=== PATIENT | female | born 1985 | race Caucasian/White ===

== ENCOUNTER 2019-01-17 14:53 | Inpatient (IN) | payer OTHER ==
[~2019-01-17] VITALS: Ht 154.9 cm; Wt 79.1 kg
[2019-03-23] MEDS ORDERED: RINGERS SOLUTION,LACTATED 1,000 ML IV PRN (11:16)
[2019-03-23] MEDS ORDERED: OXYTOCIN 30 UNITS/LACT RINGERS 500 ML IV ONE (11:16)
[2019-03-23 11:21] VITALS: BP 128/86
[2019-03-23] MEDS ORDERED: OXYGEN THERAPY IH SCH (11:30)
[2019-03-23] MEDS ORDERED: FentaNYL CITRATE-PF 100 MCG/2 ML VIAL IVP PRN (11:30)
[2019-03-23] MEDS ORDERED: METHYLERGONOVINE MALEATE 0.2 MG/ML VIAL IM PRN (11:30)
[2019-03-23] MEDS ORDERED: METOCLOPRAMIDE HCL 5 MG/ML 2 ML VIAL IVP PRN (11:30)
[2019-03-23] MEDS ORDERED: CITRIC ACID/SODIUM CITRATE 30 ML SOLUTION UDCUP PO PRN (11:30)
[2019-03-23] MEDS: RINGERS SOLUTION,LACTATED 1,000 ML IV SCH ×2 (11:40→18:14)
[2019-03-23] MEDS ORDERED: PREN-134 PO (11:43)
[2019-03-23 13:01] LABS: BASOPHILS % (AUTO) 0.2 % (0.0-2.0); EOSINOPHILS % (AUTO) 0 % (1.0-6.0); HEMATOCRIT 38.4 % (36-46); HEMOGLOBIN 12.6 g/dL (12.0-16.0); LYMPHOCYTES # (AUTO) 2.8 K/uL (1.0-4.8); LYMPHOCYTES % (AUTO) 15.7 % (22.0-44.0); MEAN CORPUSCULAR HEMOGLOBIN 29.4 pg (26.0-34.0); MEAN CORPUSCULAR HGB CONC 32.8 G/dL (31.0-37.0); MEAN CORPUSCULAR VOLUME 89 fL (80-100); MONOCYTES % (AUTO) 5.6 % (2.0-9.0); NEUTROPHILS # (AUTO) 13.7 K/uL (1.8-7.7); NEUTROPHILS % (AUTO) 78.5 % (40.0-70.0); PLATELET COUNT (AUTO)-OB 324 K/uL (150-450); RED BLOOD CELL COUNT(AUTO) 4.29 MIL/uL (4.00-5.20); RED CELL DISTRIBUTION WIDTH 16.2 % (11.5-14.5)
[2019-03-23] MEDS ORDERED: LIDOCAINE/PF 1% 30 ML VIAL ONE (19:23)
[2019-03-23] MEDS ORDERED: CeFAZolin 2 GM/DEXTROSE 50 ML IV ONE (20:15)
[2019-03-23] MEDS ORDERED: OXYTOCIN 20 UNITS/LACT RINGERS 1,000 ML IV ONE ×2 (20:22→20:30)
[2019-03-23] MEDS ORDERED: BENZOCAINE 20%/MENTHOL 56 GM SPRAY CANISTER TP PRN (20:45)
[2019-03-23] MEDS ORDERED: ACETAMINOPHEN/CODEINE 300-30 MG TABLET PO PRN ×2 (20:45)
[2019-03-23] MEDS ORDERED: LANOLIN 7 GM OINTMENT TP PRN (20:45)
[2019-03-23] MEDS ORDERED: GLYCERIN/WITCH HAZEL LEAF 40 PADS JAR TP PRN (20:45)
[2019-03-23] MEDS: MAGNESIUM HYDROXIDE SUSPENSION 30 ML UDCUP PO SCH (21:48)
[2019-03-23] MEDS: IBUPROFEN 800 MG TABLET PO SCH (21:48)
[2019-03-24] MEDS: IBUPROFEN 800 MG TABLET PO SCH ×2 (07:16→13:20)
[2019-03-24] MEDS ORDERED: IBUP-2071 PO (12:38)
[2019-03-24] MEDS ORDERED: DSS100 PO (12:40)
[2019-03-24] MEDS: MAGNESIUM HYDROXIDE SUSPENSION 30 ML UDCUP PO SCH (13:20)
== END 2019-03-24 19:36 | disposition home or self-care (01) | DRG 807 ==
LOC: 4S 14:53 → UNDOADMOB 14:53 → 4S 03-23 10:15 → OBSVTOIN 03-23 10:15
PROVIDERS: ADMIT Obstetrics & Gynecology; ATTEND Obstetrics & Gynecology
PROC: 10E0XZZ Delivery of Products of Conception, External Approach (ICD-10-PCS; principal; 2019-03-23)
PROC: 10907ZC Drainage of Amniotic Fluid, Therapeutic from Products of Conception, Via Natural or Artificial Opening (ICD-10-PCS; 2019-03-23)
PROC: 0W8NXZZ Division of Female Perineum, External Approach (ICD-10-PCS; 2019-03-23)
DX: O69.82X0 Labor and delivery complicated by other cord entanglement, without compression, not applicable or unspecified (principal); Z37.0 Single live birth; Z3A.40 40 weeks gestation of pregnancy
CPT/HCPCS: 86850; 86900; 86901; J2590; J3490; J7120